=== PATIENT | male | born 1970 | race Two or more races ===

== ENCOUNTER 2023-12-17 09:19 | Emergency (ER) | payer OTHER ==
[~2023-12-17] VITALS: Ht 175.3 cm; Wt 113.1 kg
[2023-12-17 10:11] VITALS: BP 145/106; PULSE 99; RESP 16; TEMP 97.6; O2SAT 97
[2023-12-17] MEDS ORDERED: OXYM-15 (10:36)
[2023-12-17] MEDS: OXYMETAZOLINE HCL 0.05 % NASAL SPRAY 15ML EACHNOSTRI ONE (10:55)
== END 2023-12-17 10:59 | disposition home or self-care (01) ==
LOC: ER 09:19
DX: R04.0 Epistaxis (principal); R03.0 Elevated blood-pressure reading, without diagnosis of hypertension